=== PATIENT | female | born 1970 | race American Indian/Alaskan Native ===

== ENCOUNTER 2017-04-07 08:01 | Inpatient (IN) | payer OTHER ==
[2017-03-30 10:27] VITALS: BMI 32.8
[2017-04-07] MEDS ORDERED: Succinylcholine 200 mg/10 ml Inj IV ONE (10:04)
[2017-04-07] MEDS ORDERED: Rocuronium 10 mg/ml (5 ml) ONE ×2 (10:04→12:07)
[2017-04-07] MEDS ORDERED: Midazolam 2 MG/2 ML VIAL ONE (10:04)
[2017-04-07] MEDS ORDERED: Propofol 10 mg/ml Inj (20 ML) ONE ×2 (10:04→14:40)
[2017-04-07] MEDS ORDERED: Lactated Ringer's 1,000 ML IV ONE ×3 (10:40→15:02)
[2017-04-07] MEDS: Bupivacaine 0.5% Inj(30mL) ONE ×2 (11:21→11:30)
[2017-04-07] MEDS ORDERED: HEMOSTATIC MATRIX 10 ML DIS.NEEDLE TOP ONE (14:23)
[2017-04-07] MEDS ORDERED: Naloxone 0.4 mg/ml Inj (Adult) IVP PRN (15:08)
[2017-04-07] MEDS ORDERED: DiphenhydrAMINE 50 mg/ml Inj IVP PRN (15:08)
[2017-04-07] MEDS: HYDROmorphone 0.5 mg/0.5 ml ISec IVP PRN ×4 (15:15→15:52)
[2017-04-08 08:02] VITALS: RESP 20
[2017-04-08] MEDS ORDERED: Oxycodone/Acetaminophen 5/325 mg Tab PO PRN (09:50)
--- NOTE | 2017-04-08 11:27 | CP.PCM.PN ---
Subjective - Date & Time of Evaluation Date of Evaluation: 04/08/17 Time of Evaluation: 11:36 - Subjective Subjective: Patient feels better but has a lot of gas ambulates well Objective - Vital Signs/Intake and Output Vital Signs (last 24 hours): Temp Pulse Resp BP Pulse Ox 98.7 F 94 H 20 150/77 97 04/08/17 08:00 04/08/17 08:00 04/08/17 08:00 04/08/17 08:00 04/08/17 08:00 Intake and Output: 04/08/17 04/08/17 06:59 18:59 Output Total 150 Balance -150 - Medications Medications: Current Medications Diphenhydramine HCl (Benadryl) 25 mg IVP Q6 PRN PRN Reason: Itching / Pruritus Heparin Sodium (Porcine) (Heparin) 5,000 units SC Q12 BLANCA PRN Reason: Protocol Last Admin: 04/08/17 08:38 Dose: 5,000 units Naloxone HCl (Narcan) 0.1 mg IVP Q2M PRN PRN Reason: Shortness of Breath Ondansetron HCl (Zofran Inj) 4 mg IVP Q6 PRN PRN Reason: Nausea/Vomiting Oxycodone/Acetaminophen (Percocet 5/325 Mg Tab) 1 tab PO Q4 PRN PRN Reason: Pain, severe (8-10) Stop: 04/11/17 09:51 - Constitutional Appears: Well - Eye Exam Eye Exam: Normal appearance - Respiratory Exam Respiratory Exam: NORMAL BREATHING PATTERN - GI/Abdominal Exam GI & Abdominal Exam: Distended, Soft Additional comments: incisions intact and clean no rebound or guarding - Rectal Exam Rectal Exam: NORMAL INSPECTION - Exam Exam: NORMAL INSPECTION External exam: NORMAL EXTERNAL EXAM - Extremities Exam Extremities Exam: Normal Inspection Assessment and Plan - Assessment and Plan (Free Text) Assessment: s/p Robotic assisted Hysterectomy BSO stable Plan: Continue care D/C to home f/u w Dr Castañeda in 1 week pelvic rest 12 weeks
[2017-04-08 11:32] LABS: HEMOGLOBIN 10.8 g/dL (12.0-16.0); MEAN CELL VOLUME 85.4 fl (81.0-99.0); MEAN CORPUSCULAR HEMOGLOBIN 28.2 pg (27.0-31.0); MEAN CORPUSCULAR HGB CONC 33.1 g/dL (33.0-37.0); RBC 3.84 Mil/uL (3.80-5.20); RED CELL DISTRIBUTION WIDTH 13.7 % (11.5-14.5); WHITE BLOOD COUNT 11.5 K/uL (4.8-10.8)
[2017-04-08 16:05] VITALS: BP 150/77; PULSE 94; TEMP 98.7; O2SAT 97
--- NOTE | 2017-04-10 07:41 | OP ---
PROCEDURE DATE: 04/07/2017 PREOPERATIVE DIAGNOSES: Ovarian mass, pelvic pain, symptomatic fibroid uterus. POSTOPERATIVE DIAGNOSES: Endometrioma, fibroid uterus, intraabdominal adhesions. PROCEDURE: Robotic-assisted hysterectomy with bilateral salpingo-oophorectomy, enterolysis of adhesions, and cystoscopy as well. SURGEON: Dr. Castañeda. DIRECTOR OF PRODUCT DEVELOPMENT: Dr. Poole. ANESTHESIOLOGIST: Dr. Cabrera. TYPE OF ANESTHESIA: General endotracheal tube. FLUID REPLACEMENT: Lactated Ringer's. DRAINS: Colon to gravity. COMPLICATIONS: None. ESTIMATED BLOOD LOSS: 200 mL. INDICATION FOR SURGERY: The patient is a 47-year-old with persistent pelvic mass and pelvic pain. DESCRIPTION OF PROCEDURE: After informed consent was obtained and signed, the patient was brought to the operating room and placed in the supine position. Once general anesthesia was successfully induced, the patient was placed in a dorsal lithotomy position, prepped and draped in usual sterile fashion. The patient was examined under anesthesia . A bivalve speculum was placed intravaginally. The cervix was grasped with single-tooth tenaculum. It was then tented forward and dilated in a graduated fashion. VCare device was placed with ease and insufflated into place. Once the VCare device was found to be operational, attention turned to the pre-prepped abdominal area and which 2 cm above the umbilicus, an 8 mm horizontal incision was created. The Veress needle was placed without difficulty and then insufflated with ease with CO2 distention medium then the robotic trocar was then placed without difficulty and then attention turned to the camera, which confirmation of placement was confirmed. Abdominal cavity was surveyed then the remaining ports were then placed 2 on the patient's right lateral, 2 on the patient's left lateral and on the right an 8 mm, 8 mm. Please note, Marcaine was given prior to each incision. Once the robotic trocar was placed and confirmed by laparoscopy, the robot was then docked into place. Uterus was then targeted by the camera and the remaining arms of the robot was then attached to the remaining trocars. Attention then turned to the instrument, instruments were then loaded with the ports using monopolar scissors. The ProGrasp, the PK, bipolar and accessory port. Once all instruments were engaged, I then scrubbed and went to surgeon's console, which I began the surgery and taken control of the instruments. First, the adhesions were addressed. The intraabdominal adhesions to the posterior cul-de-sac to the posterior wall of the uterus with the bowel was then removed as well as the side wall, bowel adhesions to the pelvic side wall using a PK and monopolar scissors on these adhesions were removed and displaced distally. Once this was completed, attention turned to the mass on the patient's right side, which bowel was adherent to as well. These adhesions were then disconnected once the uterus was free and the adnexal were free. The tubal structure was elevated and the round ligaments were than grasped bilaterally, cauterized with the PK bipolar and then transected using the monopolar scissors. Once this created, the broad ligament and posteriorly leaf was then entered. Once IP ligament was skeletonizing free, the PK was used to cauterize and then transected using monopolar esvin to disconnect the IBP ligament, this was occurred bilaterally. Once the IP was free, the tubes were elevated and then skeletonization of the broad ligament was then performed and then the anterior leaf of the broad ligament was then extended to and bladder flap was created using the monopolar esvin. The PK was used to displaced the peritoneal of the bladder flap down distally revealing the cuff underneath the bulge of the cuff. Once this was identified, the uterus was then grasped on the sides using the PK. then used a monopolar esvin transection occurred. This happened bilaterally. Once uterines were cauterized and transected then the anterior cuff was then acquired using a monopolar esvin anteriorly into green cuff was seen. Once the cuff was reached then transcircumferential incision was then created around of the entire uterus with careful visualization of the bowel . Once the uterus was free, Dr. Poole then removed the uterus in its eternity. Once the uterus was removed Dr. Poole placed a moist laparotomy sponge intravaginally and then removed my monopolar esvin and replaced it with the V-Loc suture 12-inch after he deployed the suture. He then placed it with Maik suture cut instrument. Once the instrument was in place and then proceeded to close the vaginal cuff using 12-inch V-Loc suture. Once the cuff was completely closed, the suture was then transected and removed. Dr. Poole then copiously irrigated the pelvic cavity and suctioning, cleaning up the remaining parts of the from the endometriosis. Once all clear, then FloSeal was then deployed by Dr. Poole and after the FloSeal was then placed in an appropriate places, all equipments were removed. Dr. Poole then undocked the robot and I proceeded with cystoscopy at this time and when the cystoscopy efflux of both ureters were then noted. No sutures or injury was noted throughout the bladder wall. All equipments were then removed. All trocars were removed and using Dermabond glue, the trocar incision was then closed and dressings were applied. The patient tolerated the procedure well. All sponge, needle, and equipment count were correct x3. The patient went to recovery room in stable condition with Colon in place. Kiki Castañeda MD
== END 2017-04-08 15:05 | disposition home or self-care (01) | DRG 743 ==
LOC: H.OPSURG 08:01 → H.MEDSURG1 15:33
PROVIDERS: ADMIT Specialist; ATTEND Specialist
PROC: 0UT74ZZ Resection of Bilateral Fallopian Tubes, Percutaneous Endoscopic Approach (ICD-10-PCS; 2017-04-07)
PROC: 0DNW4ZZ Release Peritoneum, Percutaneous Endoscopic Approach (ICD-10-PCS; 2017-04-07)
PROC: 8E0W4CZ Robotic Assisted Procedure of Trunk Region, Percutaneous Endoscopic Approach (ICD-10-PCS; 2017-04-07)
PROC: 0TJB8ZZ Inspection of Bladder, Via Natural or Artificial Opening Endoscopic (ICD-10-PCS; 2017-04-07)
PROC: 0UT94ZZ Resection of Uterus, Percutaneous Endoscopic Approach (ICD-10-PCS; principal; 2017-04-07 10:15)
PROC: 0UT24ZZ Resection of Bilateral Ovaries, Percutaneous Endoscopic Approach (ICD-10-PCS; 2017-04-07 10:15)
DX: D25.9 Leiomyoma of uterus, unspecified (principal); E78.00 Pure hypercholesterolemia, unspecified; I10 Essential (primary) hypertension; N73.6 Female pelvic peritoneal adhesions (postinfective); N80.9 Endometriosis, unspecified; N83.9 Noninflammatory disorder of ovary, fallopian tube and broad ligament, unspecified